=== PATIENT | female | born 1940 | race Caucasian/White ===

== ENCOUNTER 2020-12-11 18:07 | Emergency (ER) | payer MEDICARE, SELFPAY ==
--- NOTE | ~2020-12-11 | XR_ITS ---
EXAMINATION: XR wrist RT 2V EXAM DATE: 12/11/2020 18:33 INDICATION: All over pain towards RT wrist after fall yesterday. TECHNIQUE: Frontal and lateral projections of the right wrist. There is no prior study for comparis on. FINDINGS: There are no acute fractures or dislocations identified. There is no subcutaneous gas. Th e soft tissue is unremarkable. There are no radiopaque foreign bodies. 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 IMPRESSION: 1. XR wrist RT 2V exam without acute osseous findings. Reviewed, dictated and finalized at location A.
--- NOTE | 2020-12-11 18:14 | ED.UPPEXIN ---
HPI - Extremity Injury (Upper) General Chief Complaint: Extremity Injury, Upper Stated Complaint: arm pain Source: patient and RN notes reviewed Mode of arrival: ambulatory Limitations: no limitations History of Present Illness complaint: injury to: right and wrist Onset (ago): hour(s) (8) Other injuries: none Handedness: right Place: home Severity: moderate Relieving factors: none Exacerbating factors: movement of extremity Context: fall Associated symptoms: denies other symptoms Related Data Home Medications Medication Instructions Recorded Confirmed donepezil 5 mg PO DAILY 12/11/20 12/11/20 Allergies Allergy/AdvReac Type Severity Reaction Status Date / Time No Known Allergies Allergy Verified 12/13/19 07:42 Review of Systems Review of Systems: All systems reviewed & are unremarkable except as noted in HPI and below PMFSH Past Medical History Medical History Dementia GERD (gastroesophageal reflux disease) Surgical History Surgical History (Updated 12/11/20 @ 18:35 by Kulwant Atkinson MD) H/O hysterectomy for benign disease Social History Social History (Updated 12/11/20 @ 18:35 by Kulwant Atkinson MD) Smoking status: Never smoker Alcohol intake: never Substance use: never Exam Const: General: healthy appearing and no acute distress Nutritional Appearance: well nourished Orientation/consciousness: patient oriented x3 HENMT: Head: normal to inspection Ears: external ears normal Eyes: Conjunctivae: conjunctivae normal Pupils: Equal, round and reactive pupils present EOM: EOMs intact bilaterally Neck: Neck: normal visual inspection Resp: Effort & Inspection: normal respiratory effort Auscultation: clear to auscultation bilaterally Cardio: Rate: regular rate Rhythm: regular rhythm GI: GI Palp: Yes Soft to palpation and No Tenderness to palpation present (GI) Auscultation: normal bowel sounds Back/Spine/Pelvis: Cervical Spine: cervical ROM normal Thoracic/Lumbar Spine: thoraco-lumbar ROM normal Skin: General skin exam: normal color Neuro: General: patient oriented x3, moves all extremities, no meningeal signs and no focal motor deficits Speech: normal speech Gait exam (Neuro): Normal gait present Extrem: General: normal exam except as noted Right upper extremity: wrist tenderness of the distal radius and of the distal ulna, abnormal ROM held in an abnormal fashion with flexion and with ABduction, pain with active ROM during and pain with passive ROM during and normal vascular exam Psych: Appearance: grossly normal and well kempt Mental Status: mental status grossly normal Affect: normal affect Attitude: cooperative Thought content: Yes Normal thought content present Procedures Orthopedic Splinting/Casting Injury #1: Splinting/Casting Date: 12/11/20 Splinting/Casting Time: 18:50 Side: right Upper Extremity Injury Location: wrist Upper Extremity Immobilizer: wrist splint Pre-Formed: velcro wrist splint Pre-Procedure Neuro Vascular Exam: normal Post-Procedure Neuro Vascular Exam: normal Discharge Plan Discharge Clinical Impression: Sprain and strain of wrist Patient Disposition: Home, Self-Care Condition: Stable Instructions: Wrist Sprain (ED) Additional Instructions: ice and elevate. Use Tylenol and or Motrin as needed for pain. Prescriptions: No Action donepezil 5 mg tablet 5 mg PO DAILY RF: 0 Follow-up/Referrals: Nettie,MD Kaushal [Primary Care Provider] - Time of Disposition: 18:48
[2020-12-11 18:22] VITALS: BP 156/93; PULSE 76; RESP 18; TEMP 36.4; O2SAT 95
[2020-12-11] MEDS: IBUPROFEN 600 MG TABLET PO (18:50)
== END 2020-12-11 18:58 | disposition home or self-care (01) ==
PROVIDERS: Emergency Provider Emergency Medicine; PCP Family Medicine
DX: S63.501A Unspecified sprain of right wrist, initial encounter (principal)
CPT/HCPCS: 73100; 99282; 99283; A9270

== ENCOUNTER 2021-07-19 08:51 | Outpatient (RCR) | payer MEDICARE, SELFPAY ==
--- NOTE | 2021-07-19 09:55 | PTOPEVAL ---
Thank you for referring Yaz Martinez to [facility].? The patient is scheduled to be seen for therapy? __1__x/week for 3 visits. Please review, sign, date and return this plan of care OLE. I agree with and certify that the following plan of care is medically necessary. Referring Physician Date Admitting Provider: Attending Provider: Kaushal Sheffield, Referring Provider: *PT Outpatient Evaluation Start: 07/19/21 09:13 Freq: Status: Active Protocol: Document 07/19/21 09:14 ODALIS (Rec: 07/19/21 09:55 [email or web address] [id number]) Therapy Assessment Status Assessment Status Assessment Status Evaluation Evaluation Information Problem Diagnosis vertigo Subjective Information Over the past year pt. was Query Text:As Reported By Patient/ noticing dizziness when laying Family on her right side and getting up in the morning. She reports feeling like the room is spinning after getting out of bed. She reports during the day she rarely notices dizziness. She states that she has not fallen. She reports that her goal is to reduce her dizziness. Pain Assessment Self Report Self Report Pain Level 0 Pain Score Pain Score 0: Self Report Cervical and Lumbar ROM Cervical ROM Cervical Flexion (0-60) 50 Query Text:Active in Degrees Cervical Extension (0-70) 50 Query Text:Active in Degrees Cervical Lateral Flexion Right (0-50) 25 Query Text:Active in Degrees Cervical Lateral Flexion Left (0-50) 25 Query Text:Active in Degrees Cervical Rotation Right (0-90) 55 Query Text:Active in Degrees Cervical Rotation Left (0-90) 60 Query Text:Active in Degrees Vestibular Evaluation Vestibular Medical Information Past Vestibular History Cervical Pain,Sinus/Allergy Issues Previous Medical Care/Testing MRI Symptoms Increase Look Up,Quick Head Turns, Rolling in Bed Symptoms Decrease Holding Head in one Position, Moving Slowly Types of Symptoms Imbalanced/Unsteady,Spinning Standardized Tests Dizziness Handicap Inventory Standardized Test Scores (Number 0-100) 6 Vestibular Testing Gaze Stabilization with Fixation WNL Gaze Stabilization without Fixation WNL Johnny-Hallpike Left WNL Elgin-Hallpike Right Upward Nystagmus General Exercise General Exercises Exercise Description Pt. completes 3 reps of the
== END 2021-07-23 11:37 | disposition home or self-care (01) ==
LOC: CHSPT 08:51
PROVIDERS: PCP Family Medicine; Visit Provider Family Medicine
DX: R42 Dizziness and giddiness (principal)
CPT/HCPCS: 97112; 97161

== ENCOUNTER 2024-11-22 00:31 | Day surgery (SDC) | payer MEDICARE, SELFPAY ==
[2024-11-17 12:53] VITALS: BMI 19.9
--- NOTE | 2024-11-17 13:13 | PC.NURSE ---
Report to the Outpatient Waiting Room, entrance under the green pavilion located off [facility], at time __10:30AM____ on date ____11/22/24___. Planned Procedure Time: ___12:30PM .? Time changes happen often and if your time is changed the preop area will call you the afternoon before. - You and your visitor will be asked to self-screen and do not enter if you have any COVID symptoms. Please call surgeon if you need to reschedule. - A mask is optional within the hospital at this time. Patients may have clear liquids (water, carbonated beverages, clear teas, apple juice) until 3 hours prior to surgery (9:30AM) with a maximum of 20 ounces. - No food from midnight until time of surgery and no smoking, or chewing tobacco (or any form of nicotine). No chewing gum, candy or mints. Take only the following medications with a SIP of water on the morning of surgery: AMOXICILLIN. HYDROCODONE NEEDED FOR PAIN DO NOT STOP ANY OF YOUR OTHER PRESCRIPTION MEDICATIONS PRIOR TO SURGERY EXCEPT THE FOLLOWING Hold all vitamins and supplements for 3 days per anesthesiologist. Medications to discontinue per physician NONE Date to take last dose Please no make-up, nail tongan, hairspray, perfume, deodorant, or body powder the day of surgery.? No jewelry (including any body piercings) or valuables the day of surgery, leave them at home.? Please take a shower or bath the night before, or the morning of, surgery with an antibacterial soap.? Wear comfortable, loose fitting clothing.? - Jewelry must be removed prior to entering the operating room.? Rings and piercings that are not removed may be cut off. - The hospital will not accept responsibility for valuables.? - Please leave all valuables, including medications, at home the day of surgery. If you are going home after surgery, a licensed diesel truck driver must drive you home.? - NO public transportation without another adult if you receive anesthesia. - We recommend that an adult stay with you for 24 hours following discharge. - We also recommend that you do not drive, make important decision, drink alcoholic beverages, or take any drugs that were not prescribed by your health care provider for at least 24 hours after your discharge time. Follow any additional instructions given to you from your surgeon. Telephone instructions given to ____PATIENT'S [id number], JOSE LUIS and asked if any additional questions and then verbalized understanding. Patient advised to call surgeon office or pre surgery nurse liaison [phone] if any additional questions.
[2024-11-22] VITALS (7 sets, daily range): BP systolic 130–174; BP diastolic 71–95; PULSE 65–71; RESP 12–18; TEMP 36.1–36.6; O2SAT 94–100; BMI 20.6
--- NOTE | 2024-11-22 07:23 | WPDHPUPDATE1 ---
History and Physical Update Update Date/Time: 11/22/24 07:23 History and Physical has been reviewed, including an updated exam of the patient. There are NO changes in the patient's condition. Risks, benefits, and alternatives have been discussed and questions answered. Patient agrees to proceed with procedure.
[2024-11-22] MEDS: LACTATED RINGERS 1,000 ML 30 ML IV CONT (11:00)
--- NOTE | 2024-11-22 12:47 | P.PNAN_ITS ---
Anes - Initial Pre Proc Eval Procedure: Operation Date: 11/22/24 12:45 Proposed Procedures p Direct Laryngoscopy, Biopsy of Pharyngeal Mass - Melquiades Arias MD Date/Time: 11/22/24 12:47 Surgeon: Melquiades Arias MD Pre Op Diagnosis: acute pharyngitis Patient Data Age: 84 Gender: F Height: 1.6 m Weight: 52.9 kg Last Vital Signs Temp 36.6 C 11/22/24 11:00 Pulse 71 11/22/24 11:00 Resp 18 11/22/24 11:00 BP 130/74 11/22/24 11:00 Pulse Ox 99 11/22/24 11:00 O2 Del Method Room Air 11/22/24 11:00 Allergies Allergy/AdvReac Type Severity Reaction Status Date / Time No Known Allergies Allergy Verified 11/22/24 11:09 Home Medications ?Medication ?Instructions ?Recorded ?Confirmed ?Type amoxicillin 875 mg tablet 875 mg PO Q12H #14 tabs 11/16/24 11/22/24 Rx famotidine 20 mg tablet 20 mg PO QHS #10 tabs 11/16/24 11/17/24 Rx nystatin 100,000 unit/mL oral 4 ml PO QID 10 days #160 mL 11/16/24 11/17/24 Rx suspension hydrocodone 5 mg-acetaminophen 325 1 tablet PO Q4-6H PRN pain 11/17/24 11/17/24 History mg tablet Patient hx anesthesia problems: none Family hx anesthesia problems: none Results Review: All pre-operative results and documents have been reviewed as part of the pre- operative evaluation. [facility] Past Medical History Medical History (Updated 11/22/24 @ 12:47 by Edvin Garcia DO) Pharyngeal mass Dementia Surgical History Surgical History H/O hysterectomy for benign disease Social History Social History Smoking status: Never smoker Alcohol intake: current Substance use: never Living arrangements: alone Spiritual care concerns: No Anes - Eval Final PreProcedure Day of Procedure 11/22/24 12:47 Patient weight: normal Heart: regular rate and rhythm Lungs: clear to auscultation Airway: Mallampati scale class II Neurological: alert and oriented Last oral intake: >/= 8 hours ASA classification: III Emergent: no Anesthetic plan: proceed Anesthesia type and monitoring: general ETT and standard monitoring Results Review: All pre-operative results and documents have been reviewed as part of the pre- operative evaluation. Informed Consent: The patient's anesthetic plan and its attendant risks and benefits were discussed with the patient/family/POA. Questions were solicited and answers provided to the satisfaction of the patient/family/POA.
[2024-11-22] MEDS: ceFAZolin 2 GM/D5W 50 ML 2 GM/50 ML BAG IVPB (13:37)
--- NOTE | 2024-11-22 14:00 | S_PTH ---
PATIENT: Yaz Martinez LOC: [facility] U#:[id number] AGE/SX: 84/F ROOM: RE11/22/[address]: Melquiades Arias MD : [id number] BED: DIS: 11/22/2024 SPEC #: [id number] RECD: 11/23/24 07:58 STATUS: ZINA REAileen #: [id number] OTIS: 11/22/24 14:[address]: Melquiades Arias DEPT: [facility] Surgical RECD BY: Matt Puckett ENTERED: 11/23/24 07:58 SP TYPE: Surgical OTHR DR: Kaushal Sheffield, Tissues: A - Biopsy Procedures: Hematoxylin and Eosin Stain Gross and Microscopic Level 4
[2024-11-22] MEDS: fentaNYL CITRATE INJ (*CRX) 100 MCG/2 ML VIAL 25 MCG IV PUSH ×2 (14:26→14:35)
--- NOTE | 2024-11-22 14:35 | W.PM.PROC2 ---
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 Flexible laryngoscopy was performed demonstrating some very mild redundant tissue in the right piriform sinus. Patient was taken back to the OR. General anesthesia was induced and endotracheal tube is secure the patient's airway. Patient prepped draped position procedure confirmed 2nd time-out performed. Dedo laryngoscope utilized to enter the patient's airway bringing the right piriform sinus into view. This occurred after a maxillary tooth mouth guard was placed over the patient's maxillary dentition. Redundant mucosal tissue was biopsied x1 it appeared to be just do most redundant esophageal tissue. Patient tolerated the biopsy well Afrin-soaked pledget was placed time 1 minimal bleeding if any. I performed all dictated portions of the procedure McIvor to make os sorry Dedo laryngoscope and maxillary tooth mouth guard removed the patient's airway. No damage to any surrounding structure dentition. Care the patient given back to Anesthesiology. Blood loss essentially 0 cc. Of note all the other cancer anatomic sub sites were directed directly visualized with no masses lesions or ulcerations. Estimated Blood Loss 0 Drains No Packing No Pathology Yes Complications No immediate complications Condition Stable Disposition PACU [facility] Billing Surgery - Charge Forward: Surgery Billing
== END 2024-11-22 15:56 | disposition home or self-care (01) ==
PROVIDERS: PCP Family Medicine; Visit Provider Otolaryngology
PROC: 0CJS8ZZ Inspection of Larynx, Via Natural or Artificial Opening Endoscopic (ICD-10-PCS; CPT 31535; principal; 2024-11-22 12:45)
DX: J39.2 Other diseases of pharynx (principal)
CPT/HCPCS: 31535; 88305; A9270; J0690; J1100; J2003; J2405; J2704; J3010; J7120